=== PATIENT | male | born 1940 | race Asian ===

== ENCOUNTER 2017-01-09 09:48 | Inpatient (IN) | payer OTHER, MEDICAID ==
[~2017-01-09] VITALS: Ht 167.6 cm; Wt 64.9 kg
[~2017-01-09 09:48] MED LIST: ACET-2619 PO; COZ50 PO; DOCU-2 PO; DONE10TA10 PO; LANTUS SUBQ; MAGN400S60 PO; MEMA10TA PO; METF850T PO; SIMV10TA1 PO; XALOS OP
--- NOTE | 2017-01-09 09:48 | NUR ---
Patient BIBA BLS, transferred to bed 7. RN evaluating patient at bedside.
--- NOTE | 2017-01-09 09:50 | NUR ---
76M ASHTYN FROM [facility] C/O POSSIBLE G-TUBE REPLACEMENT; PER [facility], FACILITY NOTED OOZING AROUND G-TUBE SITE AND WERE CONCERNED G-TUBE MAY BECOME OCCLUDED, BUT G-TUBE PATENT AT THIS TIME; G-TUBE FLUSHED AND PATENT AT THIS TIME WITH BLACK MATERIAL NOTED IN G-TUBE; NO OOOZING OR DRAINAGE NOTED FROM G-TUBE SITE TO LEFT ABDOMEN AT THIS TIME; NO OCCLUSION NOTED IN G-TUBE AT THIS TIME; PT AWAKE, UNABLE TO VERBALLY RESPOND, UNABLE TO FOLLOW COMMANDS AT THIS TIME; PER [facility], PT ACTING NEUROLOGICALLY AT BASELINE; BL LUNG SOUNDS CLEAR, RR EVEN/UNLABORED, PT NOTED WITH ERYTHEMA TO BUTTOCKS AT THIS TIME; BL UPPER/LOWER EXTREMITES CONTRACTED AT THIS TIME; PT NOTED WITH DIAPER; HX: PNA, COPD, DYSPHAGIA, ARTHRITIS, MUSCLE WEAKNESS, TYPE II DM, HTN, DEMENTIA, GERD, ALZHEIMERS, HYPERCHOLSTEREMIA, BIPOLAR; PT PLACED ON MONITOR, RESTING IN BED WITH HOB ELEVATED AND IN LOWEST POSITION; POSITIONED FOR COMFORT; ER MD MADE AWARE OF STATUS. WILL CONTINUE TO MONITOR.
[2017-01-09 09:51] VITALS: BP 103/76
--- NOTE | 2017-01-09 09:53 | NUR ---
Dr. Carter evaluating patient at bedside.
[2017-01-09] MEDS ORDERED: FLOR250 GT (10:01)
[2017-01-09] MEDS ORDERED: ASCO500T45 GT (10:01)
[2017-01-09] MEDS ORDERED: FERR325E14 GT (10:01)
[2017-01-09] MEDS ORDERED: MULT1SGL58 PO (10:01)
[2017-01-09] MEDS ORDERED: PANT40EC GT (10:01)
--- NOTE | 2017-01-09 10:30 | NUR ---
PT APPEARS TO BE RESTING COMFORTABLY IN BED; VSS; RR EVEN/UNLABORED; POSITIONED FOR COMFORT; WILL CONTINUE TO MONITOR.
--- NOTE | 2017-01-09 11:19 | NUR ---
REPORT GIVEN TO SHANKAR MATOS; AWAITING ADMIT ORDERS TO BRING PT TO FLOOR.
[2017-01-09] MEDS: NACL 0.9% 1,000 ML IV SCH ×2 (11:49→16:53)
[2017-01-09] MEDS ORDERED: oxyCODONE/APAP 5/325 MG 1 TAB TAB PO PRN (11:50)
[2017-01-09] MEDS ORDERED: HYDROcodone/APAP 7.5/325 MG 1 TAB PO PRN (11:50)
[2017-01-09] MEDS ORDERED: DOCUSATE SODIUM 100 MG GELCAP PO PRN (11:50)
[2017-01-09] MEDS ORDERED: ACETAMINOPHEN 325 MG TAB PO PRN (11:50)
[2017-01-09] MEDS ORDERED: ONDANSETRON 4 MG/2 ML VIAL IM/IVP PRN (11:50)
--- NOTE | 2017-01-09 12:15 | NUR ---
Patient will be admitted to care of DR. LAGOS. Admited to TELEMETRY. Will go to room 110A. Belongings list completed. Report to SHAWNA CHAPARRO.
[2017-01-09 12:30] VITALS: BP 122/82
--- NOTE | 2017-01-09 12:30 | NUR ---
PATIENT ARRIVED ON UNIT VIA BED. IN STABLE CONDITION. NO DISTRESS NOTED. RESPIRATIONS EVEN, UNLABORED, ON ROOM AIR. AWAKE, ALERT, NON-VERBAL, SKIN COLOR APPROPRIATE TO ETHNICITY, WARM TO TOUCH. NO PAIN NOTED FLACC SCALE IS 0. HAS SKIN REDNESS ON BUTTOCK AREA, NO OTHER WOUNDS/LESIONS NOTED. GTUBE IN PLACE ON UPPER MID ABDOMEN. IV SITE ON LEFT WRIST INTACT, PATENT, AND IVF INFUSING PER MD ORDERS. LUNGS CTA ON ALL LOBES. ABDOMEN SOFT, NON-DISTENDED. ORIENTED PATIENT TO ROOM. REVIEWED PLAN OF CARE WITH PATIENT. MRSA OF NARES COLLECTED PER PROTOCOL. SAFETY MEASURES IN PLACE, CALL LIGHT WITHIN REACH, FALL PREVENTIONS IN PLACE PER PROTOCOL. WILL CONTINUE TO MONITOR
[2017-01-09 12:46] LABS: HEMATOCRIT 41.5 % (36-52); MEAN CORPUSCULAR HEMOGLOBIN 30 pg (27-31); MEAN CORPUSCULAR HGB CONC 34 g/dL (33-37); MEAN CORPUSCULAR VOLUME 87 fL (80-94); PLATELET COUNT (AUTO) 297 K/uL (140-450); RED BLOOD CELL COUNT(AUTO) 4.76 MIL/uL (4.20-6.10); RED CELL DISTRIBUTION WIDTH 12.8 % (11.6-13.7); WHITE BLOOD COUNT (AUTO) 7.6 K/uL (4.8-10.8)
[2017-01-09 12:57] LABS: LYMPHOCYTES % (MANUAL) 35 % (20-46); MONOCYTES % (MANUAL) 3 % (5-12)
[2017-01-09 13:13] LABS: ANION GAP 10.6 (8-16); CARBON DIOXIDE 30.6 mmol/L (21-32); CHLORIDE 95 mmol/L (98-107); CREATININE 0.8 mg/dL (0.7-1.3); GLUCOSE 99 mg/dL (74-106); POTASSIUM 4.2 mmol/L (3.5-5.1); SODIUM SERUM 132 mmol/L (136-145); UREA NITROGEN, BLOOD 13 mg/dL (7-18)
[2017-01-09 13:18] LABS: PROTHROMBIN TIME 9.8 secs (10.8-13.4)
[2017-01-09 13:25] LABS: CHOL/HDL RATIO 3.3 (1-4.5); FREE T4 (FREE THYROXINE) 1.25 ng/dL (0.76-1.46); MAGNESIUM 2.1 mg/dL (1.8-2.4); PHOSPHORUS 4.2 mg/dL (2.5-4.9); THYROID STIMULATING HORMONE 1.74 uIU/mL (0.34-3.74)
--- NOTE | 2017-01-09 14:15 | NUR ---
PATIENT LYING IN BED. NO DISTRESS NOTED. CONDITION UNCHANGED. ASSISTED DIGITAL STRATEGY SPECIALIST WITH CLEANING PATIENT, PROVIDED PERINEAL CARE, AND REPOSITIONED PATIENT. SAFETY MEASURES IN PLACE, CALL LIGHT WITHIN REACH. WILL CONTINUE TO MONITOR.
--- NOTE | 2017-01-09 14:30 | NUR ---
DR. PAREKH AT BEDSIDE. WILL CONTINUE TO MONITOR.
[2017-01-09 16:00] VITALS: BP 125/78
--- NOTE | 2017-01-09 16:00 | NUR ---
PATIENT LYING IN BED SLEEPING. AROUSABLE BY VOICE. NON-VERBAL. NO DISTRESS NOTED. RESPIRATIONS EVEN, UNLABORED ON ROOM AIR. REPOSITIONED PATIENT. SAFETY MEASURES IN PLACE. WILL CONTINUE TO MONITOR.
[2017-01-09] MEDS ORDERED: HYDRAGUARD CREAM TP SCH (16:05)
--- NOTE | 2017-01-09 17:55 | NUR ---
PATIENT LYING IN BED SLEEPING. AROUSABLE BY VOICE. REPOSITIONED PATIENT WITH RECEPTIONIST TELEPHONE OPERATOR. PROVIDED PERINEAL CARE DUE TO INCONTINENCE. CONDITION UNCHANGED. SAFETY MEASURES IN PLACE, CALL LIGHT WITHIN REACH. WILL CONTINUE TO MONITOR.
--- NOTE | 2017-01-09 19:28 | NUR ---
GAVE REPORT TO MEAL ATTENDANT NURSE FOR CONTINUITY OF CARE. PATIENT IN STABLE CONDITION.
--- NOTE | 2017-01-09 19:41 | NUR ---
RECEIVED REPORT FROM AM NURSE. PT IS SLEEPING, AROUSABLE TO VOICE. ON ROOM AIR, NO SIGN S OF ACUTE DISTRESS. RESPIRATIONS EVEN AND UNLABORED. SKIN COLOR APPROPRIATE TO ETHNICITY. NO PAIN NOTED, FLACC SCALE OF O. MALFUNCTIONING G TUBE IN PLACE. IV ACCESS ON LEFT WRIST INTACT, PATENT AND ASYMPTOMATIC. BED IN LOW POSITION, BILATERAL HALF SIDE RAILS UP, CALL LIGHT WITHIN REACH, WILL CONTINUE TO MONITOR.
[2017-01-09 20:00] VITALS: BP 123/76
[2017-01-09] MEDS ORDERED: INSULIN LISPRO SLIDING SCALE 100 UNITS/ML VIAL SUBQ PRN (22:25)
[2017-01-09] MEDS ORDERED: DEXTROSE 50% 50 ML SYR IVP PRN (22:25)
[2017-01-09] MEDS: BLOOD GLUCOSE MONITORING 1 DEV DEV FS SCH (22:25)
[2017-01-10] VITALS: BP 116/68
[2017-01-10 01:24] LABS: APPEARANCE,URINE CLEAR (CLEAR); BILIRUBIN,URINE NEGATIVE (NEGATIVE); BLOOD, URINE NEGATIVE (NEGATIVE); COLOR,URINE YELLOW (YELLOW); LEUKOCYTE ESTERASE ,URINE NEGATIVE (NEGATIVE); NITRITE, URINE NEGATIVE (NEGATIVE); PH,URINE 6.5 (5.0-9.0); UGLUCOSE NEGATIVE (NEGATIVE)
[2017-01-10 01:45] LABS: RBC,URINE 0-5 (RARE) /HPF (0-5); WBC,URINE 0-5 (RARE) /HPF (0-5)
[2017-01-10] MEDS: DEXT 5% /NACL 0.9% 1,000 ML IV SCH ×3 (03:20→18:25)
--- NOTE | 2017-01-10 03:32 | NUR ---
PT IS SLEEPING, AROUSABLE TO VOICE, NO SIGNS OF ACUTE DISTRESS. ALL SAFETY MEASURES IN PLACE. BED IN LOW POSITION, BILATERAL HALF SIDE RAILS UP, CALL LIGHT WITHIN REACH. WILL CONTINUE TO MONITOR.
[2017-01-10 04:00] VITALS: BP 103/64
--- NOTE | 2017-01-10 06:25 | NUR ---
PT IS SLEEPING, EASY TO AROUSE. NO SIGNS OF ACUTE DISTRESS NOTED. RESPIRATIONS EVEN AND UNLABORED. BED IN LOW POSITION, BILATERAL HALF SIDE RAIL UP, CALL LIGHT WITHIN REACH, WILL CONTINUE TO MONITOR.
--- NOTE | 2017-01-10 06:31 | NUR ---
PATIENT HAS BEEN SCREENED AND CATEGORIZED HIGH NUTRITION RISK. PATIENT WILL BE SEEN WITHIN 1-2 DAYS OF ADMISSION. 01/10/17-01/11/17 PRITI MORENO MS, RDN
[2017-01-10] MEDS: BLOOD GLUCOSE MONITORING 1 DEV DEV FS SCH ×4 (06:33→21:00)
--- NOTE | 2017-01-10 07:20 | NUR ---
ASSUMED CONTINUITY OF CARE. NO SIGNS AND SYMPTOMS OF ACUTE DISTRESS NOTICED. INITIAL ASSESSMENT DONE. HOB ELEVATED. FALL PRECAUTION APPLIED CALL LIGHT WITHIN REACH.
[2017-01-10 07:22] LABS: HEMATOCRIT 36.4 % (36-52); HEMOGLOBIN 12.2 g/dL (12.0-18.0); MEAN CORPUSCULAR HEMOGLOBIN 30 pg (27-31); MEAN CORPUSCULAR HGB CONC 34 g/dL (33-37); MEAN CORPUSCULAR VOLUME 89 fL (80-94); PLATELET COUNT (AUTO) 261 K/uL (140-450); RED BLOOD CELL COUNT(AUTO) 4.11 MIL/uL (4.20-6.10); RED CELL DISTRIBUTION WIDTH 12.6 % (11.6-13.7)
--- NOTE | 2017-01-10 07:25 | NUR ---
ENDORSED PT TO AM NURSE FOR CONTINUITY OF CARE. PT IN STABLE CONDITION.
[2017-01-10 07:28] LABS: ALBUMIN 2.9 g/dL (3.4-5.0); ANION GAP 11.5 (8-16); ASPARTATE AMINOTRANSFERASE 19 U/L (15-37); CARBON DIOXIDE 26.3 mmol/L (21-32); CHLORIDE 99 mmol/L (98-107); CREATININE 0.8 mg/dL (0.7-1.3); GLUCOSE 118 mg/dL (74-106); POTASSIUM 3.8 mmol/L (3.5-5.1); SODIUM SERUM 133 mmol/L (136-145); TOTAL BILIRUBIN 0.7 mg/dL (0.0-1.0); UREA NITROGEN, BLOOD 14 mg/dL (7-18)
[2017-01-10 07:29] LABS: MAGNESIUM 1.9 mg/dL (1.8-2.4); PHOSPHORUS 3.6 mg/dL (2.5-4.9)
--- NOTE | 2017-01-10 07:33 | NUR ---
Patient's Plan of Care was discussed and reviewed with SHOP HELPER: GLORIA.
[2017-01-10 07:55] LABS: LYMPHOCYTES % (MANUAL) 42 % (20-46); MONOCYTES % (MANUAL) 6 % (5-12)
[2017-01-10 08:00] VITALS: BP 105/66
--- NOTE | 2017-01-10 08:05 | NUR ---
DR. AGUILAR CAME AND CHECKED PT. GT. PER DR. AGUILAR PT. GT WAS FUNCTIONING NOW. INFORMED CHARGE NURSE ALICE MCNEIL.
[2017-01-10] MEDS: MEMANTINE 10 MG TAB PO SCH ×2 (09:36→22:08)
[2017-01-10] MEDS: metFORMIN 850 MG TAB PO SCH ×3 (09:36→17:02)
[2017-01-10] MEDS: PANTOPRAZOLE 40 MG TABEC PO SCH (09:36)
[2017-01-10] MEDS: LOSARTAN 50 MG TAB PO SCH (09:37)
--- NOTE | 2017-01-10 09:38 | NUR ---
01/10/17 RD INITIAL ASSESSMENT COMPLETED PLEASE REFER TO NUTRITION ASSESSMENT UNDER CARE ACTIVITY FOR ESTIMATED NUTRITIONAL NEEDS. RD RECOMMENDATIONS: 1. CONTINUE NPO MEDICALLY APPROPRIATE PER MD. 2. WHEN MEDICALLY APPROPRIATE PER MD, CONSIDER INITIATING ENTERAL FEEDINGS: DIABETISOURCE AC AT 60 ML/HR X 24 HOURS. THIS PROVIDES 1440 ML TOTAL VOLUME, 1728 KCAL, 86.4 GM PROTEIN, 1177 ML TOTAL FREE WATER. 3. CONSIDER WATER FLUSH EVERY OF 140 ML Q 4 HOURS TO PROVIDE 560 ML. 4. CONSULT RDN PRN. 5. RD WILL F/U 2-3 DAYS; HIGH RISK. PRITI MORENO, MS, RDN
--- NOTE | 2017-01-10 10:25 | NUR ---
RESIDENTS MD TOGETHER WITH CHARGE NURSE MADE THEIR PT. ROUNDS AND SEEN PT.. MADE AWARE OF GT WAS FUNCTIONING ALREADY.
[2017-01-10 12:00] VITALS: BP 115/74
[2017-01-10 16:00] VITALS: BP 117/69
[2017-01-10] MEDS ORDERED: ALBUTEROL SULFATE/IPRATROPIU 3 ML SOL IH PRN (16:00)
--- NOTE | 2017-01-10 16:00 | NUR ---
VITALS SIGNS STABLE. NO DISCOMFORT NOTED. CONTINUE MONITORING.
[2017-01-10] MEDS: ALBUTEROL SULFATE/IPRATROPIU 3 ML SOL IH SCH (18:57)
--- NOTE | 2017-01-10 19:15 | NUR ---
BEDSIDE REPORT GIVEN TO ENA MCNEIL. IVF INFUSING WELL. IN STABLE CONDITION.
--- NOTE | 2017-01-10 19:16 | NUR ---
RECEIVED REPORT FROM AM NURSE. PATIENT IS SLEEPING, AROUSABLE TO VOICE. ON ROOM AIR. NO SIGNS OF ACUTE DISTRESS NOTED. RESPIRATIONS EVEN AND UNLABORED. G TUBE IN PLACE. BOTH UPPER AND LOWER EXTREMITIES CONTRACTURE. SKIN COLOR IS APPROPRIATE TO ETHNICITY. SKIN TEMP WARM TO TOUCH. IV ACCESS IS INTACT, PATENT, AND ASYMPTOMATIC. BED IN LOW POSITION, BILATERAL HALF SIDE RAILS UP, CALL LIGHT WITHIN REACH, WILL CONTINUE TO MONITOR.
[2017-01-10 20:00] VITALS: BP 132/65
[2017-01-10] MEDS ORDERED: INSULIN DETEMIR 100 UNITS/ML 10 ML VIAL SUBQ SCH (21:00)
[2017-01-10] MEDS ORDERED: LATANOPROST 0.005% OP 2.5 ML BTL OP SCH (21:00)
[2017-01-10] MEDS ORDERED: DONEPEZIL 10 MG TAB PO SCH (21:00)
[2017-01-10] MEDS ORDERED: SIMVASTATIN 10 MG TAB PO SCH (21:00)
--- NOTE | 2017-01-10 22:29 | NUR ---
MEDICATED PT VIA G TUBE. PER DR AGUILAR TO FLUSH G TUBE WITH 20 ML OF 7UP AFTER EVERY ADMINISTRATION OF MEDICINE. FLUSHED G-TUBE WITH 20 ML OF 7 UP, PRIOR TO AND AFTER ADMINISTRATION OF MEDICATIONS. PT TOLERATED WELL, G TUBED FLUSHED, AND FUNCTIONING WELL. WILL CONTINUE TO MONITOR.
[2017-01-11 01:00] VITALS: BP 123/79
[2017-01-11] MEDS: ALBUTEROL SULFATE/IPRATROPIU 3 ML SOL IH SCH ×3 (01:05→13:05)
--- NOTE | 2017-01-11 02:21 | NUR ---
PT IS AWAKE, RESTING COMFORTABLY IN BED. PT IS NON VERBAL. NO SIGNS OF ACUTE DISTRESS NOTED, RESPIRATIONS EVEN AND UNLABORED. BED IN LOW POSITION, BILATERAL HALF SIDE RAILS UP, CALL LIGHT WITHIN REACH, WILL CONTINUE TO MONITOR.
--- NOTE | 2017-01-11 03:00 | NUR ---
PER DR AGUILAR TO FLUSH G TUBE WITH 20 ML OF 7UP EVERY 4 HOURS. FLUSHED G TUBE WITH 20 ML 7UP, G TUBE IS FUNCTIONING WELL. PT TOLERATED WELL. WILL CONTINUE TO MONITOR.
[2017-01-11 04:00] VITALS: BP 102/55
[2017-01-11 06:55] LABS: HEMOGLOBIN 11.4 g/dL (12.0-18.0); MEAN CORPUSCULAR HEMOGLOBIN 29 pg (27-31); MEAN CORPUSCULAR HGB CONC 33 g/dL (33-37); MEAN CORPUSCULAR VOLUME 90 fL (80-94); PLATELET COUNT (AUTO) 244 K/uL (140-450); RED BLOOD CELL COUNT(AUTO) 3.91 MIL/uL (4.20-6.10); RED CELL DISTRIBUTION WIDTH 12.9 % (11.6-13.7); WHITE BLOOD COUNT (AUTO) 6.1 K/uL (4.8-10.8)
[2017-01-11] MEDS: BLOOD GLUCOSE MONITORING 1 DEV DEV FS SCH ×2 (07:03→12:10)
[2017-01-11 07:20] LABS: ANION GAP 11.5 (8-16); CARBON DIOXIDE 26.3 mmol/L (21-32); CHLORIDE 102 mmol/L (98-107); CREATININE 0.8 mg/dL (0.7-1.3); GLUCOSE 110 mg/dL (74-106); POTASSIUM 3.8 mmol/L (3.5-5.1); SODIUM SERUM 136 mmol/L (136-145); UREA NITROGEN, BLOOD 9 mg/dL (7-18)
--- NOTE | 2017-01-11 07:25 | NUR ---
ENDORSED PT TO AM NURSE FOR CONTINUITY OF CARE. PT IS IN STABLE CONDITION.
--- NOTE | 2017-01-11 07:26 | NUR ---
REPORT RECEIVED FROM HOME HEALTH CARE COORDINATOR, PT RESTING QUIETLY IN NAD, AROUSES TO VOICE, OPENS EYES, APPEARS COMFORTABLE, PLAN OF CARE REVIEWED, INITIAL ASSESSMENT COMPLETED, CALL SANTIAGO WITHIN REACH, SIDE RAILS UP, BED LOCKED IN LOW POSITION WILL CONTINUE TO MONITOR.
[2017-01-11 08:00] VITALS: BP 115/56
[2017-01-11] MEDS: metFORMIN 850 MG TAB PO SCH ×2 (08:56→12:11)
[2017-01-11] MEDS: LOSARTAN 50 MG TAB PO SCH (08:56)
[2017-01-11] MEDS: DEXT 5% /NACL 0.9% 1,000 ML IV SCH (08:57)
[2017-01-11] MEDS: PANTOPRAZOLE 40 MG TABEC PO SCH (08:57)
[2017-01-11] MEDS: MEMANTINE 10 MG TAB PO SCH (08:57)
[2017-01-11 09:06] LABS: EOSINOPHILS % (MANUAL) 2 % (0-4); LYMPHOCYTES % (MANUAL) 38 % (20-46); MONOCYTES % (MANUAL) 12 % (5-12)
--- NOTE | 2017-01-11 09:07 | NUR ---
RESIDUAL CHECKED VIA G TUBE, 10ML ASPIRATED, DUE MEDS GIVEN, FLUSHED WITH 20ML 7-UP, PT MATTI WELL, WILL CONTINUE TO MONITOR.
--- NOTE | 2017-01-11 10:30 | NUR ---
TUBE FEEDING STARTED AT 10ML/HR PER ORDER, WILL CHECK RESIDUAL IN 1HR.
--- NOTE | 2017-01-11 11:00 | NUR ---
BED SIDE CONSULT PER PRIMARY RN, LEFT BUTTOCK 7 X3, MOISTURE RELATED DERMATITIS, SKIN OPEN, DRESSING APPLIED. SPOKE TO DR. SERRANO OF RECOMMENDATIONS: CLEANSE LEFT BUTTOCK MAD WITH NS. PAT DRY AND APPLY WITH HYDROGEL AND COVER WITH DRY DRESSING, SECURE WITH TAPE. QD AND PRN IF SOILING. PER DOCTOR WILL ADD TO DISCHARGE ORDER. Addendum: 01/13/17 at 1144 by Fiorella Lai RN (Grace) RIGHT BUTTOCK MAD 2.5X1.5CM. BOTH AREAS DRY AND WOUND BEDS ARE CLEAN, NO S/S INFECTION.
[2017-01-11 12:00] VITALS: BP 106/61
--- NOTE | 2017-01-11 12:05 | NUR ---
CM NOTE FAXED CLINICAL INFO AND DISCHARGE ORDER TO [facility]. PER RAVEN OF [facility] PH# [phone], PATIENT GOING TO [address], DR. FELICIANO FERMIN. SPOKE WITH [facility] OF [facility]SP[facility] PH# [phone], SET UP TRANSPORT BY [facility] [employer] TIME BETWEEN 1400 AND 1500 TODAY GOING TO [facility]. MANNY PEACOCK, CHARGE NURSE JONNY, NURSE CASSIE AWARE.
--- NOTE | 2017-01-11 12:16 | NUR ---
RESIDUAL 5ML, TUBE FEEDING CONTINUES, DUE MEDS GIVEN, WILL CONTINUE TO MONTIOR
--- NOTE | 2017-01-11 13:42 | NUR ---
[facility] AT [phone], PT TO GO TO ROOM 133 BED A, [facility] TO PICK HIM UP BETWEEN 1400 & 1500, PT RESTING QUIETLY IN NAD, RESP EVEN UNLABORED, WILL CALL FAMILY WITH UPDATE.
--- NOTE | 2017-01-11 13:50 | NUR ---
KALE GARIBAY (SON) CALLED TO NOT[facility] [phone]
--- NOTE | 2017-01-11 14:45 | NUR ---
MEDICAL TRANSPORT HERE TO [employer] PROJECT MANAGER PT, REPORT AND COPY OF CHART GIVEN, PT DISCONNECTED FROM GT FEED, FLUSHED WITH 7UP, IV DC'D, CATH TIP INTACT, BLEEDING CONTROLLED, [facility].
== END 2017-01-11 14:45 | disposition home or self-care (01) | DRG 56 ==
LOC: MED 09:48 → MTU 11:49
PROVIDERS: ADMIT Family Medicine Sports Medicine; ATTEND Family Medicine Sports Medicine
DX: G30.9 Alzheimer's disease, unspecified (principal); G93.41 Metabolic encephalopathy; E44.0 Moderate protein-calorie malnutrition; E87.8 Other disorders of electrolyte and fluid balance, not elsewhere classified; E87.1 Hypo-osmolality and hyponatremia; Z43.1 Encounter for attention to gastrostomy; R47.01 Aphasia; E11.9 Type 2 diabetes mellitus without complications; F02.80 Dementia in other diseases classified elsewhere, unspecified severity, without behavioral disturbance, psychotic disturbance, mood disturbance, and anxiety; I10 Essential (primary) hypertension; J44.9 Chronic obstructive pulmonary disease, unspecified; E78.1 Pure hyperglyceridemia; Z79.84 Long term (current) use of oral hypoglycemic drugs; Z79.4 Long term (current) use of insulin; Z79.899 Other long term (current) drug therapy; Z68.23 Body mass index [BMI] 23.0-23.9, adult; Z66 Do not resuscitate; Z74.01 Bed confinement status
CPT/HCPCS: 36415; 71010; 80048; 80053; 81001; 82150; 82948; 83036; 83690; 83735; 83880; 84100; 84436; 84439; 84443; 84479; 85025; 85610; 85730; 87081; 93925; 93970; 94640; 99285; J1815; J7030; J7042; J7620; Q0092